=== PATIENT | female | born 1985 | race Caucasian/White ===

== ENCOUNTER 2016-09-05 08:50 | Observation (INO) | payer OTHER ==
[2016-09-05 09:44] VITALS: BMI 20.7
[2016-09-05] MEDS ORDERED: IV START KIT ONE (09:50)
[2016-09-05] MEDS: LACTATED RINGERS 1,000 ML IV SCH ×4 (10:00→14:39)
[2016-09-05] MEDS ORDERED: TERBUTALINE SULFATE 1 MG/ML VIAL SUB-Q PRN (10:40)
[2016-09-05 10:44] LABS: HEMATOCRIT 38.5 % (37.0-47.0); HEMOGLOBIN 13.2 gm/l (12.0-16.0); MEAN CELL VOLUME 96.7 fl (81.0-99.0); MEAN CORPUSCULAR HEMOGLOBIN 33.2 pg (27.0-31.0); MEAN CORPUSCULAR HGB CONC 34.3 g/dl (33.0-37.0); RED CELL DISTRIBUTION WIDTH 12.6 % (11.5-14.5)
[2016-09-05] MEDS ORDERED: ONDANSETRON 4 MG/2ML 2 ML VIAL ONE (10:47)
[2016-09-05] MEDS: ONDANSETRON 4 MG/2ML 2 ML VIAL IV PRN ×3 (10:52→21:31)
[2016-09-05 10:57] LABS: ALB/GLOB RATIO 1.2 (>1.0); ALBUMIN 3.5 gm/dL (3.5-5.7); CALCIUM 8.9 mg/dL (8.6-10.3)
[2016-09-05 12:12] LABS: URINE APPEARANCE HAZY; URINE BILIRUBIN 1+ (NEGATIVE); URINE BLOOD TRACE (NEGATIVE); URINE COLOR AMBER; URINE GLUCOSE (UA) NEGATIVE (NEGATIVE); URINE LEUKOCYTE ESTERASE 1+ (NEGATIVE); URINE NITRITE NEGATIVE (NEGATIVE); URINE PROTEIN 1+ (NEGATIVE); URINE UROBILINOGEN 4 mg/dL (0-1 mg/dl)
[2016-09-05 12:27] LABS: URINE RBC 0-1 /hpf
[2016-09-05 12:28] LABS: URINE BACTERIA FEW
[2016-09-05] MEDS ORDERED: NIFEDIPINE 10 MG CAPSULE PO SCH ×2 (13:00→19:00)
[2016-09-05 13:31] LABS: AMPHETAMINES/METHAMPHETAMINES NEGATIVE (NEGATIVE); COCAINE NEGATIVE (NEGATIVE); MARIJUANA POSITIVE (NEGATIVE); METHADONE NEGATIVE (NEGATIVE); OPIATES NEGATIVE (NEGATIVE); TRICYCLIC ANTIDEPRESSANTS NEGATIVE (NEGATIVE)
[2016-09-05] MEDS ORDERED: BUPROPION HCL 150 MG XL TAB.ER.24H PO SCH (13:45)
--- NOTE | 2016-09-05 14:09 | PCMAN ---
OB Admission Note - History : 4 Term: 1 : 2 Abortions (S&E): 0 Livin Gestational Age (weeks): 34 Days (#/7): 5 Admit Cervical Dilation:: closed Admit Cervical Effacement (%):: 50 Admit Station:: -3 Admit Presentaton:: vertex Membrane Status: Intact Labor Onset (Date): 09/04/16 (Pt has been having nausea for 2-3 days and unable to eat or drink much during that time. Contrx were mild but persistent last night but stronger and closer this morning. No bleeding and no change in discharge. ) Labor Onset (Time): 02:00 Contractions: Yes Contraction Frequency:: 2-5 Heart Rate:: 120 (Category 1, baby girl quite active and not deep in pelvis. ) Status:: good EFW:: 4.5 - 5 lbs Summary of Course:: Pt was diagnosed with this at about 5.5wks of amenorrhea in [place] when she had bleeding and a UTI due to E.Coli. She had a UTI due to GBS at 16 wks which was treated, and then has been on macrobid daily suppression siince then. There was a concern about Orta's syndrome based on a Verify test, but amnio showed normal 46,XX chromosomes (possibly due to mosaicism in placenta?) Baby girl named "Tamara." Pt had her initial pncare with the [facility], but then has been followed by the [facility]'s since 21 weeks. She unfortunately never picked up the Desi for IM progesterone shots for prevention of PTL. She said that she did the 1 HGTT and it was normal as far as she knows. I do not have the records from [facility]. Pt has been using a Ventolin inhaler PRN. She also was started on Wellbutrin several months ago and is currently on the highest dose (450mg) according to the pt. US has shown normal anatomy. Only unusual finding was a cervical mass, 2cm, which has been resolving. On her exam today, I could not appreciate it. In prior pregnancies, pt had labor but does not recall what was used to stop it. She knows it was by IV, but does not recall Magnesium. She had beta- methasone with her last baby and she thinks it helped him. - Labs Blood Type: A (+) positive Hct/Hgb:: 13.2 Rubella Status: Equivocal GBS Status: Positive Other Labs:: UTI due to e.coli x2 at 6 and 11 weeks gestation, and then GBS in urine on 04/30 at 16wks. This was treated with keflex, then pt was placed on daily macrobid for suppression. She continues to take this daily. - Review of Systems Pt denies loose stools. She denies fever/chills. No recent sx of UTI. No vag bleeding or dc. - Physical Exam General: Afebrile, Mild Distress Psych/Mental Status: Mood/Affect Appropriate Neurological: Alert Lungs: Clear to Auscultation Bilaterally Cardiovascular: Regular Rate and Rhythm Abdomen: Normal Bowel Sounds Genitourinary: Normal Female Genitalia Skin: Normal Color, Warm, Dry - Problems (1) Current with history of pre-term labor Status: Acute Code: O09.219Assessment/Plan: Persistent painful contractions despite IV hydration. H/o 2 deliveries because of labor at 36 weeks after earlier PTL. (2) Uterine scar from previous delivery, antepartum Status: Acute Code: O34.219Assessment/Plan: Prior c/section x3.
[2016-09-05] MEDS ORDERED: BETAMETHASONE ACET 6 MG/ML 5ML VIAL IM ONE (15:38)
[2016-09-05] MEDS ORDERED: ACETAMINOPHEN 500 MG TABLET PO PRN (15:51)
--- NOTE | 2016-09-05 16:09 | PDOC36 ---
Provider Note Subject: Progress Note: Pt is sitting up in bed, c/o headache and a return of her nausea. Contrx are definitely less. Exam: Contrx on the monitor are spaced out and irregular. Abd soft FH 140's, moderate variability, no worrisome pattern. Imp: Improved, but I am concerned about a delivery. Pt was dehydrated, but has responded to IV fluids and terbx1, and procardia x1 Beta-methasone was discussed and recommended. Risks/benefits reviewed. Plan: Pt will be given another dose of zofran and tylenol. Pt also is requesting the steroid injection. We will watch her for at least 1 hour after this. If pt is doing well, I will send her home on bedrest for f/up tomorrow.
[2016-09-05] MEDS ORDERED: PUMP TUBING ONE ×2 (17:38→22:10)
--- NOTE | 2016-09-05 17:53 | PDOC36 ---
Provider Note Subject: Progress note Note: Pt is starting to feel the cramping more. She is feeling the pressure mostly low in front and in her lower back, like earlier. Headache is better but still there, maybe partly from the procardia. Still feels sick with some nausea. O: contrx are q6-10 mins, not as hard as earlier. FH reactive, stable VE: vertex -3, cervix posterior, soft, 50%, closed Imp: No significant cervical change but contrx continue. Pt has received 3 liters of IV fluid and is starting to void better. Procardia seems to have helped, so we will continue this at 10mg q6H. Overnight observation here at the [facility].
[2016-09-05] MEDS ORDERED: LACTATED RINGERS 1,000 ML IV SCH (18:00)
[2016-09-05 19:46] VITALS: BP 97/63
[2016-09-05] MEDS ORDERED: NIFEDIPINE 10 MG CAPSULE PO ONE (21:17)
[2016-09-05] MEDS ORDERED: MAGNESIUM SULFATE 4 G/100 ML 4 G in Premix (Water) 100 ml 1 EACH IV ONE (22:06)
[2016-09-05] MEDS ORDERED: MAGNESIUM SULFATE 4 G/100 ML 100 ML IV ONE (22:10)
[2016-09-05] MEDS ORDERED: MAGNESIUM SULFATE 1 G/100 ML 1 G in PREMIX BAG 1 EACH IV SCH (22:15)
[2016-09-05] MEDS ORDERED: MAGNESIUM SULFATE 20 G/500 ML 500 ML IV ONE (22:21)
--- NOTE | 2016-09-05 22:21 | PDOC36 ---
Provider Note Subject: Pt is having some mild cramps mixed with some more severe contractions that cause her to have a hot flash. Still with nausea, but well hydrated now. Fundus feels firm with these contractions. FH reactive. Options discussed including Magnesium and transfer to [facility] and [facility] s. Plan: Repeat Nifedipine 10mg. Re-eval for Mag in 1 hour if not better.
--- NOTE | 2016-09-05 22:38 | PDOC36 ---
Provider Note Subject: Transfer Note Note: Renetta does not think the extra dose of nifedipine helped at all. Contrx are harder, closer and longer. She also has just vomited "all she ate today." She feels this is true labor. She does not want the Mag but just wants to be delivered. She is requesting transfer back to [facility] for delivery. Exam: Contractions q 6-8 mins with irritability in between. FH category 1, no decels No vag bleeding or discharge. cervix is more posterior, soft, 50%, closed Vertex is well applied, -3 station, not ballotable. Imp: I am concerned that we have not been able to inhibit these contractions. Vag exam shows some cervical change since this morning. Pt has a small, 34w5d baby girl who is likely to be delivered in the next 2 days. Her first dose of beta-methasone was given today just after 4PM. I think it is time to transfer her to [facility] for management and possible delivery. Risks/benefits have been discussed including possible worsening labor or rupture of uterus en route; also reviewing the benefit of NICU for this baby. Pt understands and agrees with this plan. Plan: Pt 's situation was discussed with ROSY Moody at [facility]. She accepts transfer. Start Magnesium bolus, cabral catheter. Transfer by ground transport as soon as IV bolus is in.
[2016-09-05] MEDS ORDERED: MAGNESIUM SULFATE 20 G/500 ML 500 ML IV SCH ×2 (22:39→22:45)
[2016-09-06] MEDS ORDERED: NIFEDIPINE 10 MG CAPSULE PO SCH (01:00)
== END 2016-09-05 22:52 | disposition other institution (70) ==
LOC: FBC 08:50 → FBCOUT 08:50 → FBC 10:45
PROVIDERS: ADMIT Obstetrics & Gynecology; ATTEND Obstetrics & Gynecology
DX: O60.03 Preterm labor without delivery, third trimester (principal); Z3A.34 34 weeks gestation of pregnancy; O34.211 Maternal care for low transverse scar from previous cesarean delivery; O09.43 Supervision of pregnancy with grand multiparity, third trimester

== ENCOUNTER 2016-09-10 17:57 | Inpatient (IN) | payer OTHER ==
[2016-09-10] MEDS ORDERED: LACTATED RINGERS 1,000 ML ONE (18:49)
[2016-09-10] MEDS ORDERED: IV START KIT ONE (18:49)
[2016-09-10] MEDS ORDERED: SODIUM CHLORIDE 0.9% FLUSH 20 ML ONE (18:50)
[2016-09-10] MEDS ORDERED: PENICILLIN G POTASSIUM 5 MMU in NS 0.9% (MINI-BAG PLUS) 100 ML IV ONE (18:53)
[2016-09-10] MEDS ORDERED: LACTATED RINGERS 1,000 ML IV SCH ×3 (19:00→22:09)
[2016-09-10] MEDS ORDERED: OXYTOCIN 10 UNITS/ML VIAL ONE (19:05)
[2016-09-10] MEDS ORDERED: FENTANYL 100 MCG/2 ML VIAL ONE (19:05)
[2016-09-10] MEDS ORDERED: MORPHINE SULFATE (DURAMORPH) 1 MG/ML 10ML AMP ONE (19:05)
[2016-09-10] MEDS ORDERED: SPINAL PROCEDURAL TRAY 1 EACH ONE (19:05)
[2016-09-10 19:12] LABS: HEMATOCRIT 36.1 % (37.0-47.0); HEMOGLOBIN 12.3 gm/l (12.0-16.0); MEAN CELL VOLUME 97.3 fl (81.0-99.0); MEAN CORPUSCULAR HEMOGLOBIN 33.2 pg (27.0-31.0); MEAN CORPUSCULAR HGB CONC 34.1 g/dl (33.0-37.0); RED CELL DISTRIBUTION WIDTH 12.9 % (11.5-14.5)
[2016-09-10] MEDS ORDERED: PENICILLIN G POTASSIUM 5 MMU VIAL ONE (19:18)
[2016-09-10] MEDS ORDERED: NS 0.9% (MINI-BAG PLUS) 100 ML IV ONE (19:18)
--- NOTE | 2016-09-10 19:55 | PDOC1 ---
- HPI 30 year old at 35_3/7 weeks gestational age by LMP, confirmed with 5 and 8week ultrasounds who desires repeat LTCS for means of delivery due to history of prior LTCSx3. Pt presents with gross SROM. Pt was in hospital last week and transferred at 34w to [place] where she got steroid course for labor. Today patient denies any changes in health. Her course has been followed for the following problem list. Previous c/s x 3 (40w x 1, 36w x 2) On wellbutrin had NIPT which showed XO, but amniocentesis showed normal transferred to [facility] for care due to concern for Orta's and also h/o PTD h/o asthma h/o anemia h/o depression h/o chlamydia previous SOCIAL HISTORY: h/o smoking FAMILY HISTORY: h/o neice with XO Allergies/Adverse Reactions: Allergies No Known Allergies Allergy (Verified 09/05/16 11:14) - Labs & Studies LABS: Apos, ab neg plt 305 rubella equiovcal rpr NR hep B NR HIV neg REVIEW OF DATES: pt well dated by 5w u/s and has had multiple u/s with [facility] - Physical Exam General: Afebrile, No Acute Distress Lungs: Clear to Auscultation Bilaterally Cardiovascular: Regular Rate and Rhythm Abdomen: Other (efw = 2500g), No Tenderness, No Distention Genitourinary: Normal Female Genitalia, Other (grossly SROM) - Assessment & Plan 23 y/o at 35+3, SROM, previous c/s x 3; for repeat c/s delivery s/p betamethasone course Discussed with patient the risks of including infection, bleeding, damage to underlying structures including bowel, bladder, uterus, tubes, ovaries , baby, and ureter, as well as will have a scar and can have persistent pain and numbness at incision site. The patient agrees to proceed with LTCS.
[2016-09-10] MEDS ORDERED: EPHEDRINE SULFATE 50 MG/ML 1ML VIAL IV PRN ×2 (20:00→21:15)
[2016-09-10] MEDS ORDERED: MORPHINE SULFATE 10 MG/ML SYRINGE IV PRN ×2 (20:00→21:15)
[2016-09-10] MEDS ORDERED: ONDANSETRON 4 MG/2ML 2 ML VIAL IV PRN ×3 (20:00→22:09)
[2016-09-10] MEDS ORDERED: HYDROMORPHONE HCL 2 MG/ML SYRINGE IV PRN ×2 (20:00→21:15)
[2016-09-10] MEDS ORDERED: MORPHINE SULFATE 2 MG/ML SYRINGE IV PRN ×2 (20:00→21:15)
[2016-09-10] MEDS ORDERED: DIPHENHYDRAMINE HCL 50 MG/1 ML VIAL IV PRN ×3 (20:00→22:09)
[2016-09-10] MEDS ORDERED: PROMETHAZINE HCL 25 MG/ML VIAL IM PRN ×2 (20:00→21:15)
[2016-09-10] MEDS ORDERED: NALOXONE HCL 0.4 MG/ML VIAL IV PRN ×2 (20:00→21:15)
[2016-09-10] MEDS ORDERED: HYDROMORPHONE HCL 1 MG/ML SYRINGE IV PRN ×2 (20:00→21:15)
[2016-09-10] MEDS ORDERED: MORPHINE SULFATE 4 MG/ML SYRINGE IV PRN ×2 (20:00→21:15)
[2016-09-10] MEDS ORDERED: NALBUPHINE HCL 20 MG/ML AMP IV PRN ×2 (20:00→21:15)
[2016-09-10] MEDS ORDERED: MIDAZOLAM HCL 1 MG/ML 2ML VIAL ONE (20:29)
[2016-09-10] MEDS ORDERED: KETOROLAC TROMETHAMINE 30 MG/ML 1 ML VIAL ONE (20:36)
[2016-09-10] MEDS ORDERED: LANOLIN 50 APPLIC/7G TUBE TP PRN (22:09)
[2016-09-10] MEDS ORDERED: DIPHENHYDRAMINE HCL 25 MG CAPSULE PO PRN (22:09)
[2016-09-10] MEDS ORDERED: IBUPROFEN 800 MG TABLET PO PRN (22:09)
[2016-09-10 23:03] VITALS: BMI 21.7
[2016-09-10] MEDS ORDERED: PNEUMOCOCCAL 23-VAL P-SAC VAC 0.5 ML VIAL IM V ONE (23:03)
[2016-09-11] MEDS ORDERED: MORPHINE SULFATE 4 MG/ML SYRINGE ONE (00:14)
[2016-09-11 00:46] LABS: AMPHETAMINES/METHAMPHETAMINES NEGATIVE (NEGATIVE); COCAINE NEGATIVE (NEGATIVE); MARIJUANA POSITIVE (NEGATIVE); METHADONE NEGATIVE (NEGATIVE); OPIATES NEGATIVE (NEGATIVE); TRICYCLIC ANTIDEPRESSANTS NEGATIVE (NEGATIVE)
[2016-09-11] MEDS ORDERED: ONDANSETRON 4 MG/2ML 2 ML VIAL IV PRN (01:16)
[2016-09-11] MEDS: KETOROLAC TROMETHAMINE 30 MG/ML 1 ML VIAL IV SCH ×5 (01:30→19:43)
[2016-09-11] MEDS ORDERED: DIPHENHYDRAMINE HCL 25 MG CAPSULE PO PRN ×2 (01:44→20:00)
[2016-09-11] MEDS ORDERED: DIPHENHYDRAMINE HCL 50 MG/1 ML VIAL IV PRN ×2 (01:45→20:00)
[2016-09-11] MEDS ORDERED: KETOROLAC TROMETHAMINE 30 MG/ML 1 ML VIAL IV SCH (02:40)
--- NOTE | 2016-09-11 06:17 | OP ---
Beba Birch [id number] DATE OF PROCEDURE: 09/10/2016 PREOPERATIVE DIAGNOSES: 1. A 35 weeks . 2. Spontaneous rupture of membranes. 3. Previous section times 3. 4. Desires repeat section. POSTOPERATIVE DIAGNOSES: 1. A 35 weeks . 2. Spontaneous rupture of membranes. 3. Previous section times 3. 4. Desires repeat section. PROCEDURE: Repeat low transverse section. SURGEON: Brent Krishnamurthy M.D. STAFF GENETIC COUNSELOR: Susan Baptiste CNM ANETHESIA: Spinal. ESTIMATED BLOOD LOSS: 800 mL. COMPLICATIONS: None. OPERATIVE FINDINGS: Include a live born baby female with 's of 8 and 8, weighing 4 pounds 8 ounces with nuchal cord x2. There is clear amniotic fluid. OPERATIVE COURSE: The patient was taken to the operating room and placed under spinal anesthesia. The patient was then prepped and draped in the usual sterile fashion. Adequate anesthesia was confirmed. A pfannenstiel incision was made and taken down to the level of the fascia. The fascia was incised transversely and dissected bilaterally off of the underlying rectus muscle. The rectus muscle was in the midline with Velez scissors and stretched. Intraperitoneal cavity was then entered and an Fidencio retractor was then placed. A transverse incision was made on the lower uterine segment and stretched. Baby was found to be in occiput posterior position with nuchal cord x2 which was reduced. Baby was then delivered easily and bulb suctioned. After one minute of delayed cord clamping, the cord was then clamped and cut. Baby was taken to the warmer. Placenta was then extracted manually and uterus was cleared of all clots and membranes. The uterine incision was then closed with 0 Vicryl in a continuous fashion and a second layer of 0 Vicryl was used to imbricate this incision, 3-0 Vicryl was used to create hemostasis on the left side. There was good hemostasis observed. The peritoneum was then reapproximated with 3-0 Vicryl and the rectus muscle also reapproximated. The fascia was then closed with 0 Vicryl in a continuous fashion and the skin was then closed with 3-0 Monocryl in continuous and interrupted suture. The patient was then recovered from anesthesia and taken to the recovery room in stable condition. JOB: [id number]
[2016-09-11 06:58] LABS: HEMATOCRIT 27.8 % (37.0-47.0); HEMOGLOBIN 9.4 gm/l (12.0-16.0); MEAN CELL VOLUME 97.9 fl (81.0-99.0); MEAN CORPUSCULAR HEMOGLOBIN 33.1 pg (27.0-31.0); MEAN CORPUSCULAR HGB CONC 33.8 g/dl (33.0-37.0); RED CELL DISTRIBUTION WIDTH 12.8 % (11.5-14.5)
--- NOTE | 2016-09-11 08:46 | PDOC44 ---
- Subjective Day: 1 Pain well controlled. . Tolerating clears. About to order breakfast. No flatus yet. Minimal lochia Reports Pain Tolerable, Reports , Reports Tolerating Clear Liquids - Objective Temp Pulse Resp BP Pulse Ox 98.1 F 78 18 98/56 09/11/16 08:16 09/11/16 08:16 09/11/16 08:16 09/11/16 08:16 Lab Results 09/11/16 09/10/16 06:20 19:00 WBC 13.0 H 15.0 H RBC 2.84 L 3.71 L Hgb 9.4 L D 12.3 Hct 27.8 L 36.1 L Plt Count 203 293 09/11/16 09/10/16 09/10/16 06:20 23:30 19:00 MCH 33.1 H 33.2 H U Marijuana (THC) Screen Positive H Current Medications Generic Name Dose Route Start Last Admin Trade Name Freq PRN Reason Stop Dose Admin Diphenhydramine HCl 25 - 50 mg 09/10/16 20:00 09/11/16 05:07 Benadryl IV 09/11/16 20:00 25 mg Q4H PRN Administration Itching Diphenhydramine HCl 25 mg 09/11/16 01:44 Benadryl PO Q6H PRN Itching (Mild/Moderate) Diphenhydramine HCl 25 mg 09/11/16 01:45 Benadryl IV Q6H PRN Itching (Severe) Docusate Sodium 100 mg 09/11/16 09:00 Colace PO BID MCKINLEY Emollient Ointment 1 applic 09/10/16 22:09 Dpa-Y-Doxnar TP PRN PRN sore nipples Ephedrine Sulfate 5 - 10 mg 09/10/16 20:00 Ephedrine Sulfate IV 09/11/16 20:00 Q5M PRN Hydromorphone HCl 0.5 - 2 mg 09/10/16 20:00 09/11/16 08:12 Dilaudid IV 09/11/16 20:00 1 mg Q1H PRN Administration Pain (Breakthrough) Hydromorphone HCl 0.5 - 2 mg 09/10/16 20:00 Dilaudid IV 09/11/16 20:00 Q1H PRN Pain Lactated Ringer's 1,000 mls @ 125 mls/hr 09/10/16 22:09 09/11/16 00:25 Lactated Ringers IV 125 mls/hr .Q8H MCKINLEY Administration Ibuprofen 800 mg 09/12/16 02:00 Motrin PO Q8H PRN Pain Ketorolac Tromethamine 30 mg 09/10/16 20:00 09/11/16 08:37 Toradol IV 09/11/16 20:00 30 mg Q6H MCKINLEY Administration Morphine Sulfate 1 - 5 mg 09/10/16 20:00 Morphine Sulfate IV 09/11/16 20:00 Q1H PRN Pain (Breakthrough) Morphine Sulfate 1 - 5 mg 09/10/16 20:00 09/11/16 00:20 Morphine Sulfate IV 09/11/16 20:00 4 mg Q1H PRN Administration Pain (Breakthrough) Morphine Sulfate 1 - 5 mg 09/10/16 20:00 Morphine Sulfate IV 09/11/16 20:00 Q1H PRN Pain (Breakthrough) Multivi/Iron Carb/Fe Sulf/FA/Prenat 1 tab 09/11/16 09:00 Plus PO DAILY MCKINLEY Nalbuphine HCl 1 - 5 mg 09/10/16 20:00 Nubain IV 09/11/16 20:00 Q4H PRN Itching Naloxone HCl 0.2 - 0.4 mg 09/10/16 20:00 Narcan IV 09/11/16 20:00 Q5M PRN Ondansetron HCl 4 mg 09/10/16 20:00 09/11/16 08:08 Zofran IV 09/11/16 20:00 4 mg Q6H PRN Administration Nausea/Vomiting Ondansetron HCl 4 mg 09/11/16 01:16 Zofran IV Q6H PRN Nausea/Vomiting Oxycodone/Acetaminophen 1 - 2 tab 09/10/16 22:09 Percocet 5/325 PO Q4H PRN Pain (Moderate) Promethazine HCl 6.25 - 12.5 mg 09/10/16 20:00 Phenergan IM 09/11/16 20:00 Q4H PRN Nausea/Vomiting Sodium Chloride 10 ml 09/10/16 22:09 09/11/16 08:37 Normal Saline 10ml Flush IV 10 ml PRN PRN Administration IV Flush Sodium Chloride 10 ml 09/11/16 09:00 Normal Saline 10ml Flush IV Q8HR MCKINLEY - Physical Exam General: Afebrile Psych/Mental Status: Mood/Affect Appropriate, Judgment/Insight Intact, Bonding Well Neurological: Grossly Intact, Alert, Oriented x 4 HEENT: Atraumatic, PERRLA, EOMI Lungs: Clear to Auscultation Bilaterally, Normal Air Movement Cardiovascular: Regular Rate and Rhythm, Normal S1, Normal S2 Breast: Soft, Skin intact Fundus: Firm, Midline, At Umbilicus Abdomen: Normal Bowel Sounds Lochia: Light Skin: Normal Color, Warm, Dry, Intact Wound SAGGER PREPARER: Dressing in Place, Shadow Drainage - Problems:Assessment/Plan (1) Uterine scar from previous delivery, antepartum Status: AcuteAssessment/Plan: POD #1 from repeat c/s. Doing well. Encouraged ambulation. Pain well controlled. Continue Postop care. Disposition: Anticipate DC Home Tomorrow
[2016-09-11] MEDS: PRENATAL VIT/FE FUMARATE/FA 1 TABLET PO SCH (10:45)
[2016-09-11] MEDS: DOCUSATE SODIUM 100 MG CAPSULE PO SCH ×2 (10:45→22:06)
[2016-09-11] MEDS: OXYCODONE/ACETAMINOPHEN 5/325 MG TABLET PO PRN ×3 (13:56→22:06)
--- NOTE | 2016-09-12 07:43 | PDOC39B ---
Hospital Course: ADMIT DATE: 09/10/16 DISCHARGE DATE: 09/12/16 ADMISSION DIAGNOSES: 35weeks , labor, previous c/s x 3; desires repeat c/section PROCEDURES: repeat low transverse c/section HISTORY OF PRESENT ILLNESS: 30 year old G4 T1 L3 at 35 weeks 3 days presenting with labor at 6cm. Pt was previously patient of [facility] and was transferred to [facility] care, however then came to [facility] in active labor. HOSPITAL COURSE: The patient had a repeat low transverse c/section. A female infant delivered at 4lbs 8oz, 8/8 apgars. Patient did well postoperatively. By day of discharge the patient is ambulating, eating, voiding, and passing flatus without difficulty. Pain is controlled and lochia is appropriate. She is []. Incision appears intact and no collection/discharge/erythema. Patient will be discharged on rx for percocet, motrin. Vital Signs - 24 hr 09/11/16 09/11/16 09/11/16 08:16 12:03 16:05 Temperature 98.1 F 98.0 F 98.2 F Pulse Rate 78 90 87 Respiratory 18 16 10 Rate Blood Pressure 98/56 105/65 106/71 O2 Saturation 98 by Pulse Oximetry 09/11/16 19:46 Temperature 97.6 F Pulse Rate 85 Respiratory 20 Rate Blood Pressure 121/64 O2 Saturation by Pulse Oximetry Laboratory Tests 09/10/16 09/10/16 09/11/16 19:00 23:30 06:20 WBC 15.0 H 13.0 H RBC 3.71 L 2.84 L Hgb 12.3 9.4 L D Hct 36.1 L 27.8 L MCV 97.3 97.9 MCH 33.2 H 33.1 H MCHC 34.1 33.8 RDW 12.9 12.8 Plt Count 293 203 Urine Opiates Screen Negative Urine Methadone Screen Negative Ur Barbiturates Screen Negative Ur Tricyclics Screen Negative U Amphetamin/Meth Scrn Negative U Benzodiazepines Scrn Negative Urine Cocaine Negative U Marijuana (THC) Screen Positive H Syphilis IgG/IgM Ab Non-reactive - Physical Exam Vital Signs: Temp Pulse Resp BP Pulse Ox 97.6 F 85 20 121/64 98 09/11/16 19:46 09/11/16 19:46 09/11/16 19:46 09/11/16 19:46 09/11/16 16:05
[2016-09-12] MEDS: OXYCODONE/ACETAMINOPHEN 5/325 MG TABLET PO PRN ×4 (07:47→20:50)
[2016-09-12] MEDS: DOCUSATE SODIUM 100 MG CAPSULE PO SCH ×2 (10:30→20:50)
[2016-09-12] MEDS: PRENATAL VIT/FE FUMARATE/FA 1 TABLET PO SCH (10:31)
[2016-09-12] MEDS: IBUPROFEN 800 MG TABLET PO PRN ×2 (10:31→18:34)
[2016-09-13] MEDS: OXYCODONE/ACETAMINOPHEN 5/325 MG TABLET PO PRN ×6 (01:25→21:22)
[2016-09-13] MEDS: IBUPROFEN 800 MG TABLET PO PRN ×3 (02:11→19:35)
--- NOTE | 2016-09-13 08:54 | PDOC39B ---
Hospital Course: ADMIT DATE: 09/10/16 DISCHARGE DATE: [09/13/2016] ADMISSION DIAGNOSES: [SROM, labor @ 35.3] PROCEDURES: Repeat Low Transverse Ceserean section] HISTORY OF PRESENT ILLNESS: 30 year old G4 T1 L3 at 35 weeks 3 days presenting with SROM and a h/o previous C/S HOSPITAL COURSE: The patient was admitted after being found to be grossly ruptured. Patient was s/p course of BMZ. She was taken back for a repeat low transverse ceserean section. Her postoperative course was unremarkable. By day of discharge the patient is ambulating, eating, voiding, and passing flatus without difficulty. Pain is controlled and lochia is appropriate. She is [ ] - Physical Exam Vital Signs: Temp Pulse Resp BP Pulse Ox 98.3 F 100 18 107/66 98 09/13/16 04:50 09/13/16 04:50 09/13/16 04:50 09/13/16 04:50 09/11/16 16:05 General: Afebrile Psych/Mental Status: Mood/Affect Appropriate, Judgment/Insight Intact, Bonding Well Neurological: Grossly Intact, Alert, Oriented x 4, Normal Gait, Normal Speech HEENT: Atraumatic, PERRLA, EOMI, Mucous membr. moist/pink Lungs: Clear to Auscultation Bilaterally, Normal Air Movement Cardiovascular: Regular Rate and Rhythm, Normal S1, Normal S2 Breast: Soft, Skin intact, Nipples Intact Fundus: Firm, Midline, Below Umbilicus Abdomen: Normal Bowel Sounds Lochia: Moderate Extremities: Full ROM Skin: Normal Color, Warm, Dry, Intact Wound: Well Approximated - Discharge Diagnosis (1) Uterine scar from previous delivery, antepartum Status: AcuteAssessment/Plan: POD #1 from repeat c/s. Doing well. Encouraged ambulation. Pain well controlled. Continue Postop care. - Discharge Plan Condition: Stable Disposition: Home Additional Instructions: [facility] appt for 09/14/16 at 2pm. Bring baby ready to nurse. Come to the restaurant front manager of the [facility] to register. Prescriptions: Ibuprofen [Motrin] 800 mg PO Q6H PRN #30 tablet PRN Reason: Pain Oxycodone HCl/Acetaminophen [PERCOCET 5/325 MG TABLET (SHF)] 1 - 2 tab PO Q4H PRN #40 tab PRN Reason: Pain Follow-Up: [facility] [Outside] Brent Krishnamurthy MD [Staff Physician] - In 2 weeks (for incision check)
[2016-09-13] MEDS: DOCUSATE SODIUM 100 MG CAPSULE PO SCH ×2 (09:38→19:35)
[2016-09-13] MEDS: PRENATAL VIT/FE FUMARATE/FA 1 TABLET PO SCH (09:38)
[2016-09-13] MEDS ORDERED: TETANUS,DIPHTHERIA TOXOID SYRINGE IM V ONE (12:00)
[2016-09-14] MEDS: OXYCODONE/ACETAMINOPHEN 5/325 MG TABLET PO PRN ×2 (01:45→05:53)
[2016-09-14] MEDS: IBUPROFEN 800 MG TABLET PO PRN (03:41)
--- NOTE | 2016-09-14 08:32 | PDOC44 ---
- Subjective Day: 3 Reports Flatus, Reports Pain Tolerable, Reports Lochia Light, Reports Other ( mom was not discharged yesterday due to baby), Denies Nausea, Denies Vomiting, Denies Fever - Objective Temp Pulse Resp BP Pulse Ox 97.7 F 90 18 112/76 98 09/14/16 01:30 09/14/16 01:30 09/14/16 01:30 09/14/16 01:30 09/11/16 16:05 Current Medications Generic Name Dose Route Start Last Admin Trade Name Freq PRN Reason Stop Dose Admin Diphenhydramine HCl 25 mg 09/11/16 01:44 Benadryl PO Q6H PRN Itching (Mild/Moderate) Diphenhydramine HCl 25 mg 09/11/16 01:45 Benadryl IV Q6H PRN Itching (Severe) Docusate Sodium 100 mg 09/11/16 09:00 09/13/16 19:35 Colace PO 100 mg BID MCKINLEY Administration Emollient Ointment 1 applic 09/10/16 22:09 [id number] TP PRN PRN sore nipples Ibuprofen 800 mg 09/12/16 02:00 09/14/16 03:41 Motrin PO 800 mg Q8H PRN Administration Pain Multivi/Iron Carb/Fe Sulf/FA/Prenat 1 tab 09/11/16 09:00 09/13/16 09:38 Plus PO 1 tab DAILY MCKINLEY Administration Ondansetron HCl 4 mg 09/11/16 01:16 Zofran IV Q6H PRN Nausea/Vomiting Oxycodone/Acetaminophen 1 - 2 tab 09/10/16 22:09 09/14/16 05:53 Percocet 5/325 PO 2 tab Q4H PRN Administration Pain (Moderate) - Physical Exam General: Afebrile, No Acute Distress Fundus: Firm, Below Umbilicus Wound COMMERCIAL ASSISTANT: Well Approximated, Other (suture intact), No Shadow Drainage, No Drainage, No Erythema, No Rash Disposition: Anticipate DC to Home (OK for discharge today; baby will be discharged)
[2016-09-14 09:30] VITALS: BP 123/78
== END 2016-09-14 10:15 | disposition home or self-care (01) | DRG 765 ==
LOC: FBCOUT 17:57 → FBC 17:58 → FBCOUT 18:39 → FBC 19:57
PROVIDERS: ADMIT Obstetrics & Gynecology; ATTEND Obstetrics & Gynecology
PROC: 10D00Z1 Extraction of Products of Conception, Low, Open Approach (ICD-10-PCS; principal; 2016-09-10)
DX: O42.913 Preterm premature rupture of membranes, unspecified as to length of time between rupture and onset of labor, third trimester (principal); O60.14X0 Preterm labor third trimester with preterm delivery third trimester, not applicable or unspecified; O34.211 Maternal care for low transverse scar from previous cesarean delivery; O99.52 Diseases of the respiratory system complicating childbirth; J45.909 Unspecified asthma, uncomplicated; O99.334 Smoking (tobacco) complicating childbirth; F17.211 Nicotine dependence, cigarettes, in remission; O09.43 Supervision of pregnancy with grand multiparity, third trimester; Z3A.35 35 weeks gestation of pregnancy; Z37.0 Single live birth

== ENCOUNTER 2016-10-01 18:59 | Inpatient (IN) | payer OTHER ==
[2016-10-01] MEDS ORDERED: IOPAMIDOL 300 (61%) 100 ML VIAL IV ONE (19:00)
[2016-10-01] MEDS ORDERED: ONDANSETRON 4 MG/2ML 2 ML VIAL ONE (19:58)
[2016-10-01] MEDS ORDERED: ACETAMINOPHEN 325 MG TABLET ONE (19:58)
[2016-10-01] MEDS ORDERED: IBUPROFEN 800 MG TABLET ONE (19:58)
[2016-10-01] MEDS ORDERED: MORPHINE SULFATE 4 MG/ML SYRINGE ONE ×2 (19:58→21:27)
[2016-10-01] MEDS ORDERED: SODIUM CHLORIDE 0.9% 1,000 ML ONE ×2 (19:58→21:06)
[2016-10-01 20:19] LABS: ABSOLUTE NEUTROPHIL COUNT 14.4 K/mm3 (1.8-7.7); BASO % 0.1 % (0.2-1.0); EOS % 0.1 % (0.9-2.9); HEMATOCRIT 34.6 % (37.0-47.0); HEMOGLOBIN 11.2 gm/l (12.0-16.0); IMM NEUT # 0.2 K/mm3 (0-0.2); IMM NEUT% 0.9 % (0-1); LYMPH # 0.8 (1.0-4.8); LYMPH % 4.9 % (15-45); MEAN CELL VOLUME 95.8 fl (81.0-99.0); MEAN CORPUSCULAR HGB CONC 32.4 g/dl (33.0-37.0); MEAN PLATELET VOLUME 8.8 fl (7.4-10.4); MONO # 1.7 (0.0-0.8); PLATELET COUNT 278 K/mm3 (130-400); RED CELL DISTRIBUTION WIDTH 12.9 % (11.5-14.5)
[2016-10-01 20:36] LABS: ALB/GLOB RATIO 1.1 (>1.0); ALBUMIN 3.5 gm/dL (3.5-5.7); CALCIUM 9.1 mg/dL (8.6-10.3); LIPASE 13 U/L (11-82)
[2016-10-01] MEDS ORDERED: CEFTRIAXONE 1 GRAM DUPLEX 100 ML IV ONE (20:43)
--- NOTE | 2016-10-01 20:43 | CT ---
EXAMINATION: Contrast enhanced CT scan of the abdomen and pelvis. CLINICAL INDICATION: Postop fever. Recent 09/10/2016. COMPARISON: None TECHNIQUE: Oral contrast: None Following uneventful administration of 100 mL of Isovue 300, intravenously axial images were acquired from just above the domes of the diaphragm to the iliac crest. A CT scan of the pelvis was also obtained from the iliac crest to the initial tuberosities. Stacked axial, sagittal, and coronal images were reviewed. Findings: Abdomen CT: (Contrast-enhanced): The lung bases are clear and are without mass or pleural effusion. The liver is unremarkable. The gallbladder is within normal limits. There is no evidence of biliary obstruction. The spleen size and attenuation are within normal limits. The pancreas is normal in size and contours. No inflammatory stranding is identified. The pancreatic duct is unremarkable. The adrenals are unremarkable. The left kidney exhibits patchy enhancement with regions of diminished enhancement within the renal cortex involving the upper mid and lower poles. The largest segment approximates 1.5 x 2.8 cm in size. There is some perinephric stranding. No hydronephrosis or proximal hydroureter is identified. The right kidney exhibits small foci of patchy diminished enhancement also the posterior upper pole and anterior lower pole. There is a suggestion of a small punctate nonobstructive calculus in the upper pole. No hydronephrosis or hydroureter is identified. The abdominal aorta is unremarkable. Shotty periaortic lymph nodes are evident. The visualized segments of small and large bowel are within normal limits. The osseous structures exhibit no displaced fracture. No lytic or blastic lesions are identified. Pelvic CT: (Contrast -enhanced): The distal ureters are unremarkable. Small pockets of gas are noted within the bladder. This is uncertain if this reflects recent instrumentation. Small amount of free fluid is noted in the cul-de-sac. The uterus is retroverted. It is enlarged and exhibits mild patchy enhancement suggesting recent gravid status. Small amount of fluid is noted within the endometrial canal. No discrete focal vascularity is detected. There are no adnexal masses. No adenopathy is identified. The distal abdominal aorta and iliac vessels are within normal limits. The visualized segments of small and large bowel are unremarkable. The appendix is unremarkable. No displaced fractures are identified. There are no gross osteolytic or blastic lesions. There are postsurgical changes compatible with recent . IMPRESSION: 1. Findings compatible with severe left and mild right pyelonephritis. There is a large segment of diminished enhancement within the interpolar distribution of the left kidney. Early renal abscess cannot be excluded. No hydronephrosis or ureteral obstruction is identified. 2. Recent postgravid appearance of the uterus which is retroverted. Small amount of free fluid is noted in the cul-de-sac. Currently there is no evidence of retained products of conception or abscess in the pelvis. 3. Small pockets of gas within the bladder. This may reflect recent instrumentation/catheterization.. 4. Postsurgical changes compatible to recent section. The findings were uploaded to the electronic medical record for review at approximately 8:43 PM 10/01/2016
[2016-10-01 20:57] LABS: PH,URINE 6.5 (5.0-8.0); SPECIFIC GRAVITY 1.005 (1.001-1.030); URINE APPEARANCE HAZY; URINE BILIRUBIN NEGATIVE (NEGATIVE); URINE BLOOD 3+ (NEGATIVE); URINE COLOR YELLOW; URINE GLUCOSE (UA) NEGATIVE (NEGATIVE); URINE LEUKOCYTE ESTERASE 2+ (NEGATIVE); URINE NITRITE NEGATIVE (NEGATIVE); URINE PROTEIN 2+ (NEGATIVE); URINE UROBILINOGEN NORMAL (0-1 mg/dl)
[2016-10-01 21:02] LABS: URINE BACTERIA 1+; URINE EPITHELIAL CELLS FEW /hpf; URINE WBC >100 /hpf
[2016-10-01] MEDS ORDERED: BISACODYL 10 MG SUP PR PRN (21:57)
[2016-10-01] MEDS ORDERED: ONDANSETRON 4 MG/2ML 2 ML VIAL IV PRN ×2 (21:57→22:21)
[2016-10-01] MEDS ORDERED: MENTHOL/CETYLPYRD 1 EACH LOZENGE PO PRN (21:57)
[2016-10-01] MEDS ORDERED: MAGNESIUM HYDROXIDE 30 ML UDCUP PO PRN (21:57)
[2016-10-01] MEDS ORDERED: BISACODYL 5 MG TABLET.EC PO PRN (21:57)
[2016-10-01] MEDS ORDERED: SODIUM CHLORIDE 0.9% 100 ML IV PRN (21:57)
[2016-10-01] MEDS ORDERED: BLISTEX LIPSTICK 1 EACH TP PRN (21:57)
[2016-10-01] MEDS ORDERED: ACETAMINOPHEN 325 MG TABLET PO PRN (21:57)
[2016-10-01] MEDS ORDERED: LACTATED RINGERS 1,000 ML IV SCH (21:57)
[2016-10-01] MEDS ORDERED: MORPHINE SULFATE 2 MG/ML SYRINGE IV PRN ×2 (22:20→23:00)
[2016-10-01] MEDS ORDERED: ALBUTEROL NEB 2.5 MG/3 ML VIAL.NEB NEB PRN (22:22)
[2016-10-01 22:28] VITALS: BMI 20.4
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
[2016-10-01] MEDS ORDERED: PUMP TUBING ONE (23:00)
[2016-10-01] MEDS: ENOXAPARIN SODIUM 40 MG/0.4 ML SYRINGE SUB-Q SCH (23:07)
[2016-10-01] MEDS: NS/Potassium Chlor 20 mEq 1,000 ML IV SCH (23:08)
[2016-10-01] MEDS: HYDROCODONE/ACETAMINOPHEN 5/325MG TABLET PO PRN (23:08)
[2016-10-02] MEDS: MORPHINE SULFATE 4 MG/ML SYRINGE IV PRN ×3 (00:24→21:27)
[2016-10-02] MEDS: HYDROCODONE/ACETAMINOPHEN 5/325MG TABLET PO PRN ×4 (03:58→20:05)
[2016-10-02 06:14] LABS: BASO % 0.2 % (0.2-1.0); EOS # 0.1 (0.0-0.5); EOS % 0.4 % (0.9-2.9); HEMATOCRIT 30.8 % (37.0-47.0); HEMOGLOBIN 9.7 gm/l (12.0-16.0); IMM NEUT # 0.2 K/mm3 (0-0.2); IMM NEUT% 1.1 % (0-1); LYMPH # 1.8 (1.0-4.8); LYMPH % 12.7 % (15-45); MEAN CELL VOLUME 98.1 fl (81.0-99.0); MEAN CORPUSCULAR HEMOGLOBIN 30.9 pg (27.0-31.0); MEAN CORPUSCULAR HGB CONC 31.5 g/dl (33.0-37.0); MEAN PLATELET VOLUME 9.2 fl (7.4-10.4); MONO # 1.9 (0.0-0.8); MONO % 13.4 % (4-12); NEUT % 72.2 % (43-75); PLATELET COUNT 266 K/mm3 (130-400); RED CELL DISTRIBUTION WIDTH 13.2 % (11.5-14.5)
[2016-10-02 06:31] LABS: CALCIUM 7.9 mg/dL (8.6-10.3)
[2016-10-02] MEDS ORDERED: LACTATED RINGERS 500 ML IV ONE (07:10)
[2016-10-02] MEDS: NS/Potassium Chlor 20 mEq 1,000 ML IV SCH ×2 (07:42→17:41)
--- NOTE | 2016-10-02 08:29 | HP ---
Beba Birch [id number] CHIEF COMPLAINT: Fever. HISTORY OF PRESENT ILLNESS: The patient is a 31-year-old female who is status post low transverse section on September 10. Had an uncomplicated postoperative course. Reports complaints of fever which started about 72 hours ago associated with cough and flank pain. Symptoms have persisted prompting the patient to seek medical attention today. Patient reports that she had a temperature as high as 103 degrees about 2 days ago and she has been having progressive left flank pain. She has had a lack of appetite and has had a little bit of vomiting while at home. REVIEW OF SYSTEMS: Significant for the fever and chills as mentioned above. She denies any upper respiratory symptoms, but has had a cough which is nonproductive. She has had some wheezing. She denies any orthopnea, chest pain, palpitations, edema. She has had a little bit of nausea, one episode of emesis. She has had persistent lower abdominal pain associated with her incision, but no drainage, discharge, or redness at the incision site. She denies any vaginal bleeding. No arthralgias. She does complain of a headache. No fainting, blackouts, or seizures. She denies any urinary frequency, burning on urination, or urgency. Review of systems is otherwise negative. PAST MEDICAL HISTORY: Significant for a history of recurrent urinary tract infections in the past. She has had a history of some chronic depression, stable on medications. She has had mild asthma. She has had a history of some anemia. No other chronic medical problems. No history of any hospitalizations. PAST SURGICAL HISTORY: Significant for a pilonidal cystectomy years ago as well as four previous sections, the last was on 09/10/2016. ALLERGIES: She has no known drug allergies. CURRENT MEDICATIONS: 1. Wellbutrin, I believe she is taking some type of extended release version 400 mg daily. 2. She takes ibuprofen 800 mg every 6 hours as needed for her postoperative pain. 3. Albuterol HFA inhaler every 4 hours as needed for wheezing. FAMILY HISTORY: Significant for father with coronary artery disease. Mother with cervical cancer and uterine cancer. SOCIAL HISTORY: Patient is living with her significant other. She smokes a half of a pack per day and has done so for the past 6 years. She rarely drinks alcohol and is on maternity leave from her job at [employer]. Her primary care provider is Dr. Ranjan Escoto. Her ACCOUNTING MACHINE MECHANIC provider is Dr. Brent Krishnamurthy. PHYSICAL EXAMINATION: VITAL SIGNS: In the emergency department initially showed a temp to 103.1, pulse of 130, blood pressure 104/64, respirations 18, oxygen saturations 98% to 100% on room air. GENERAL: This is a well-developed, well-nourished female in mild distress. HEENT: Shows moist pink oral mucosa. NECK: Supple without lymphadenopathy or thyromegaly. LUNGS: Clear to auscultation bilaterally. CARDIOVASCULAR: Reveals a regular tachycardia. ABDOMEN: Reveals some discomfort in the suprapubic area. The incision is clean, dry, and intact. No erythema, no induration around the wound or discharge. She does have some flank pain bilaterally left greater than right. PELVIC: Deferred. RECTAL: Deferred. EXTREMITIES: Show no peripheral edema. NEUROLOGIC: Nonfocal. DIAGNOSTIC IMAGING STUDIES: Included a CT of the abdomen and pelvis with contrast showing evidence of severe left and mild right sided pyelonephritis, post gravid appearance of the uterus, no evidence of any retained products of conception, no abscesses were seen. LABORATORY STUDIES: Included a CBC with a white count of 17, hemoglobin 11.2, platelet count of 278,000. Lactate is 0.8. Chemistry profile shows a sodium of 132, potassium mildly reduced at 3.4, carbon dioxide is 23, BUN 15, creatinine 1.0. Liver function tests are normal. Urinalysis shows over 100 white cells per high power field, 1+ bacteria, 2+ leukocyte esterase, negative nitrite, 2+ ketones. ASSESSMENT AND PLAN: The patient has acute pyelonephritis with flank pain, nausea, vomiting, and mild hypokalemia. She meets criteria for sepsis, this is presumably bacteria and she is being treated with Rocephin. She has mild hypokalemia, she will be given fluids with potassium. Venous thromboembolism is moderate and she will be prophylaxed with Lovenox. She is not currently breast feeding and plans to have the baby in the room, which should be fine, I do not see any infectious disease risks. Mild intermittent asthma, we will have albuterol available as needed and a recent cough. At this time with normal saturations and normal lung sounds I do not see the benefit of doing any diagnostic imaging of her lungs, but if this is progressive consider a chest x-ray. JOB: [id number] CC: Dr. Ranjan Escoto
[2016-10-02] MEDS: DOCUSATE SODIUM 100 MG CAPSULE PO SCH ×2 (09:27→22:13)
--- NOTE | 2016-10-02 09:59 | PDOC43 ---
- Subjective Chief Complaint: Flank pain and lower abd pain with fever Subjective: Reports Pain Tolerable (with Sheldon), Reports Tolerating Diet Well - Objective Vital Signs Temperature 97.8 F 10/02/16 07:37 Pulse Rate 86 10/02/16 07:37 Respiratory Rate 16 10/02/16 07:37 Blood Pressure 96/58 10/02/16 07:37 O2 Saturation by Pulse Oximetry 98 10/02/16 07:37 Oxygen Delivery Method Room Air Oxygen Flow Rate 0 Intake and Output 10/01/16 10/02/16 10/03/16 06:59 06:59 06:59 Intake Total 225 Output Total 700 Balance -475 General: Alert, Oriented x3, Cooperative, Mild Distress HEENT: Mucous membr. moist/pink Lungs: Clear to Auscultation Bilaterally Cardiovascular: Regular Rate and Rhythm Abdomen: Soft, Normal Bowel Sounds, Other (mod to severe left flank pain), No Tenderness, No Distention Extremities: No Edema Laboratory 10/02/16 05:45 10/02/16 05:45 10/02/16 05:45 RBC 3.14 L MCHC 31.5 L Calcium 7.9 L % Immature Granulocyt 1.1 H Current Medications: Current meds reviewed in EMR. - Problems: Assessment/Plan (1) Pyelonephritis Status: AcuteAssessment/Plan: bacterial due to ascending UTI, improving on Rocephin - cont IVF and Rocephin, await Cx results (2) Hypokalemia, gastrointestinal losses Status: AcuteAssessment/Plan: improved with replacement (3) Asthma Qualifiers: Asthma severity: mild intermittent Asthma complication type: uncomplicated Qualifier Code: (J45.20) Mild intermittent asthma, uncomplicated Status: AcuteAssessment/Plan: stable - albuterol PRN VTE Prophylaxis: Lovenox Disposition: Home in 1-2 days
[2016-10-02] MEDS ORDERED: NICOTINE POLACRILEX 2 MG LOZENGE PO PRN (11:36)
[2016-10-02] MEDS: MORPHINE SULFATE 10 MG/ML SYRINGE IV PRN ×2 (15:16→17:47)
[2016-10-02] MEDS ORDERED: BUPROPION HCL 150 MG XL TAB.ER.24H PO SCH (15:30)
[2016-10-02] MEDS: BUPROPION HCL 150 MG XL TAB.ER.24H PO SCH (16:25)
[2016-10-02] MEDS ORDERED: CEFTRIAXONE 1 GRAM DUPLEX 1 G in Premix (D5W) 50 ml 1 EACH IV SCH (21:00)
[2016-10-02] MEDS: ENOXAPARIN SODIUM 40 MG/0.4 ML SYRINGE SUB-Q SCH (22:13)
[2016-10-03] MEDS: NS/Potassium Chlor 20 mEq 1,000 ML IV SCH ×3 (02:07→14:52)
[2016-10-03] MEDS: MORPHINE SULFATE 4 MG/ML SYRINGE IV PRN (04:16)
[2016-10-03] MEDS: HYDROCODONE/ACETAMINOPHEN 5/325MG TABLET PO PRN ×2 (06:09→12:03)
[2016-10-03] MEDS: DOCUSATE SODIUM 100 MG CAPSULE PO SCH (08:32)
[2016-10-03] MEDS: MORPHINE SULFATE 10 MG/ML SYRINGE IV PRN (08:41)
[2016-10-03 12:30] VITALS: BP 113/73
[2016-10-03] MEDS ORDERED: KETOROLAC TROMETHAMINE 30 MG/ML 1 ML VIAL IV ONE (14:18)
[2016-10-03] MEDS: BUPROPION HCL 150 MG XL TAB.ER.24H PO SCH (15:00)
--- NOTE | 2016-10-03 16:16 | PDOC5 ---
ADMIT DATE: 10/01/16 DISCHARGE DATE: 10/03/16 ADMISSION DIAGNOSES: Pyelonephritis Discharge Diagnoses: Pyelonpehritis Chronic Depression Mild Asthma PROCEDURES PERFORMED THIS HOSPITALIZATION: None CONSULTATIONS: [employer] HOSPITAL COURSE: This is a 31 year old female who presented to the emergency department for fever, cough and flank pain. This was accompanied by decreased appetite and vomiting. She was found to have pyelonephritis and was admitted to the hospital for ongoing treatment. IV fluid hydration and antibiotics were provided. As she recently delivered a female infant in August via Section, she was evaluated by P[employer] CLE[employer] who recommends ongoing treatment as is as there was no evidence of wound infection, dehiscence or endometritis. With treatment her WBC trended down from 17.1 to 13.9. She remained anemic with a hemoglobin level of 9.7 decreased from 11.2. She was febrile overnight but felt well enough to discharge home today. Due to a tenuous social situation with her daughter's father, the patient was very motivated to be discharged. We explained that it is preferred she stay overnight due to the fever overnight and this will allow the urine culture results possibility show antibiotic susceptibilities. She preferred to discharge home and take the risk of possibly returning to the hospital if her condition worsened. - Exam Vital Signs Temperature 98.2 F 10/03/16 12:00 Pulse Rate 80 10/03/16 12:00 Respiratory Rate 16 10/03/16 12:00 Blood Pressure 113/73 10/03/16 12:00 O2 Saturation by Pulse Oximetry 99 10/03/16 12:00 Oxygen Delivery Method Room Air Oxygen Flow Rate 0 General: Alert, Oriented x3, Cooperative, No Acute Distress HEENT: Atraumatic, PERRLA, EOMI, Mucous membr. moist/pink Lungs: Clear to Auscultation Bilaterally, Normal Air Movement Cardiovascular: Regular Rate and Rhythm, Normal S1, Normal S2 Abdomen: Soft, Non-Distended, No Rigid, No Tenderness, No Rebounding Extremities: Other (R CVA tenderness), No Cyanosis, No Edema, No Tenderness Peripheral Pulses: Radial (L): 2+, Radial (R): 2+ Neurological: Normal Speech Psych/Mental Status: Normal Mood - Results Laboratory 10/02/16 05:45 10/02/16 05:45 Urine Culture with presumptive e coli Imaging Results: CT Abd/pelvis: Severe left and mild right pyelonephritis. Large segment of diminished enhancement with interpolar distribution of left kidney. EArly abscess cannot be excluded. No hydronephrosis or ureteral obstruction. Recent postgravid uterus which is retroverted. Small amount of free fluid in cul-de-sac. No evidence of retained products of conception or abscess in the pelvis. Small pockets of gas within the bladder - Problems:Assessment/Plan (1) Asthma Qualifiers: Asthma severity: mild intermittent Asthma complication type: uncomplicated Qualifier Code: (J45.20) Mild intermittent asthma, uncomplicated Status: AcuteAssessment/Plan: stable - albuterol PRN (2) Hypokalemia, gastrointestinal losses Status: AcuteAssessment/Plan: improved with replacement (3) Pyelonephritis Status: AcuteAssessment/Plan: bacterial due to ascending UTI, improving on Rocephin - cont IVF and Rocephin, await Cx results Due to social circumstances, the patient is adamant and aware of risks of DC today as she was febrile overnight and we do not have culture results yet (4) Anemia Qualifiers: Anemia type: unspecified type Qualifier Code: (D64.9) Anemia, unspecified Status: AcuteAssessment/Plan: unknown chronicity, maybe post-. Dilutional overnight - Disposition: Disposition: Home in 1-2 days - Discharge Plan Prescriptions: Docusate Sodium [COLACE 100 MG CAPSULE (SHF)] 100 mg PO BID #30 cap Ciprofloxacin HCl [Cipro] 500 mg PO BID #26 tablet Hydrocodone Bit/Acetaminophen [Loman 5/325] 1 tab PO Q4-6H PRN #20 tablet PRN Reason: Pain Ondansetron HCl [Zofran] 4 mg PO Q6H PRN #15 tablet PRN Reason: Nausea Follow-Up: Brent Krishnamurthy MD [Staff Physician] - Condition: Stable Disposition: Home
== END 2016-10-03 15:05 | disposition home or self-care (01) | DRG 776 ==
LOC: ED 18:59 → MS 21:09
PROVIDERS: ADMIT Family Medicine; ATTEND Family Medicine
DX: O86.21 Infection of kidney following delivery (principal); N12 Tubulo-interstitial nephritis, not specified as acute or chronic; B96.20 Unspecified Escherichia coli [E. coli] as the cause of diseases classified elsewhere; O99.345 Other mental disorders complicating the puerperium; F32.9 Major depressive disorder, single episode, unspecified; O99.53 Diseases of the respiratory system complicating the puerperium; E87.6 Hypokalemia; J45.20 Mild intermittent asthma, uncomplicated; O86.20 Urinary tract infection following delivery, unspecified; O90.81 Anemia of the puerperium; D64.9 Anemia, unspecified